=== PATIENT | female | born 1930 | race Caucasian/White ===

== ENCOUNTER 2016-08-16 09:13 | Outpatient (CLI) | payer MEDICARE, BC | END 2016-08-16 09:14 | disposition home or self-care (01) | DX: E11.8 Type 2 diabetes mellitus with unspecified complications (principal); Z79.899 Other long term (current) drug therapy ==

== ENCOUNTER 2016-10-25 08:00 | Outpatient (CLI) | payer MEDICARE, BC | END 2016-10-25 08:01 | disposition home or self-care (01) | DX: E11.9 Type 2 diabetes mellitus without complications (principal); Z79.899 Other long term (current) drug therapy ==

== ENCOUNTER 2017-01-19 08:00 | Outpatient (CLI) | payer MEDICARE, BC ==
[2017-01-19 19:18] LABS: ALBUMIN/GLOBULIN RATIO 1.3 (1.0-2.2); BILIRUBIN,TOTAL 0.4 mg/dL (0.2-1.0); CALCIUM 8.7 mg/dL (8.5-10.3); CREATININE 0.8 mg/dL (0.4-1.0); POTASSIUM 3.8 mmol/L (3.5-5.0); TOTAL PROTEIN 7.2 g/dL (6.7-8.2)
[2017-01-19 19:39] LABS: BASOPHILS # (AUTO) 0.1 10^3/uL (0.0-0.1); BASOPHILS % (AUTO) 0.8 %; EOSINOPHILS # (AUTO) 0.1 10^3/uL (0.0-0.7); EOSINOPHILS % (AUTO) 1.1 %; HCT - HEMATOCRIT 43.8 % (37.0-47.0); HGB - HEMOGLOBIN 14.6 g/dL (12.0-16.0); LYMPHOCYTES % (AUTO) 26.8 %; MEAN CORPUSCULAR HEMOGLOBIN 31.6 pg (27.0-31.0); MEAN CORPUSCULAR HGB CONC 33.3 g/dL (32.0-36.0); MEAN CORPUSCULAR VOLUME 94.9 fL (81.0-99.0); MEAN PLATELET VOLUME 9.3 fL (7.9-10.8); MONOCYTES # (AUTO) 0.5 10^3/uL (0.0-1.0); MONOCYTES % (AUTO) 6.1 %; NEUTROPHILS % (AUTO) 65.2 %; NUCLEATED RED BLOOD CELLS AUTO 0.2 /100WBC; RED BLOOD COUNT 4.62 10^6/uL (4.20-5.40); RED CELL DISTRIBUTION WIDTH 13.3 % (12.0-15.0); UNCORRECTED WHITE BLOOD COUNT 7.6 x10^3/uL; WHITE BLOOD COUNT 7.6 x10^3/uL (4.8-10.8)
[2017-01-19 19:46] LABS: THYROID STIMULATING HORMONE 2.2 uIU/mL (0.34-5.60)
== END 2017-01-19 08:01 | disposition home or self-care (01) ==
LOC: LAB.R 08:00
PROVIDERS: ATTEND Physician Assistant Medical
DX: R41.3 Other amnesia (principal); E03.9 Hypothyroidism, unspecified
CPT/HCPCS: 80053; 82306; 82607; 84443; 85025

== ENCOUNTER 2017-04-06 12:58 | Outpatient (CLI) | payer MEDICARE, BC ==
[2017-04-06 13:12] LABS: BASOPHILS # (AUTO) 0.1 10^3/uL (0.0-0.1); BASOPHILS % (AUTO) 0.9 %; EOSINOPHILS # (AUTO) 0.1 10^3/uL (0.0-0.7); EOSINOPHILS % (AUTO) 1.3 %; HCT - HEMATOCRIT 45.6 % (37.0-47.0); HGB - HEMOGLOBIN 15.2 g/dL (12.0-16.0); LYMPHOCYTES # (AUTO) 2.1 10^3/uL (1.5-3.5); LYMPHOCYTES % (AUTO) 31.2 %; MEAN CORPUSCULAR HEMOGLOBIN 31.1 pg (27.0-31.0); MEAN CORPUSCULAR HGB CONC 33.2 g/dL (32.0-36.0); MEAN CORPUSCULAR VOLUME 93.7 fL (81.0-99.0); MEAN PLATELET VOLUME 9.4 fL (7.9-10.8); MONOCYTES # (AUTO) 0.6 10^3/uL (0.0-1.0); MONOCYTES % (AUTO) 8.5 %; NEUTROPHILS # (AUTO) 3.9 10^3/uL (1.5-6.6); NEUTROPHILS % (AUTO) 58.1 %; NUCLEATED RED BLOOD CELLS AUTO 0.2 /100WBC; RED BLOOD COUNT 4.87 10^6/uL (4.20-5.40); RED CELL DISTRIBUTION WIDTH 13.6 % (12.0-15.0); UNCORRECTED WHITE BLOOD COUNT 6.7 x10^3/uL; WHITE BLOOD COUNT 6.7 x10^3/uL (4.8-10.8)
[2017-04-06 13:30] LABS: ALBUMIN/GLOBULIN RATIO 1.2 (1.0-2.2); BILIRUBIN,TOTAL 0.5 mg/dL (0.2-1.0); BUN - BLOOD UREA NITROGEN 24 mg/dL (6-20); CARBON DIOXIDE - CO2 29 mmol/L (21-32); CHLORIDE 101 mmol/L (101-111); CHOL/HDL RATIO 3.5 (<4.4); CHOLESTEROL 180 mg/dL; CREATININE 0.9 mg/dL (0.4-1.0); GFR - MDRD 60 (>89); GLUCOSE 135 mg/dL (70-100); HDL CHOLESTEROL 52 mg/dL; POTASSIUM 3.8 mmol/L (3.5-5.0); SODIUM 141 mmol/L (135-145); TOTAL PROTEIN 7.6 g/dL (6.7-8.2); TRIGLYCERIDES 121 mg/dL; VLDL CHOLESTEROL 24 mg/dL
[2017-04-06 15:13] LABS: HEMOGLOBIN A1C 0.86 g/dL
== END 2017-04-06 12:59 | disposition home or self-care (01) ==
LOC: LAB.R 12:58
PROVIDERS: ATTEND Physician Assistant Medical
DX: E11.9 Type 2 diabetes mellitus without complications (principal); I10 Essential (primary) hypertension; E78.5 Hyperlipidemia, unspecified; E03.9 Hypothyroidism, unspecified; Z79.899 Other long term (current) drug therapy
CPT/HCPCS: 80053; 80061; 83036; 84443; 85025

== ENCOUNTER 2017-05-05 09:05 | Outpatient (CLI) | payer MEDICARE, BC ==
--- NOTE | 2017-05-05 10:36 | Ultrasound Report ---
ULTRASOUND ANTERIOR ABDOMINAL WALL: 05/05/2017 CLINICAL INDICATION: Epigastric nodule. TECHNIQUE: Real-time scanning was performed with associate financial representative static images obtained. FINDINGS: Ultrasound of the upper abdomen, just left of midline, was performed. Multiple small lipo mas are noted in the subcutaneous fat, with the largest measuring 2.4 x 1.9 x 0.9 cm. No sonographic ally suspicious findings are identified. IMPRESSION: MULTIPLE SMALL LIPOMAS, MEASURING UP TO 2.4 CM IN DIAMETER. JOB #: [id number] EXT JOB #:[id number]
== END 2017-05-05 09:06 | disposition home or self-care (01) ==
LOC: DI 09:05
PROVIDERS: ATTEND Physician Assistant Medical
DX: D17.1 Benign lipomatous neoplasm of skin and subcutaneous tissue of trunk (principal)
CPT/HCPCS: 76705

== ENCOUNTER 2017-07-12 08:00 | Outpatient (CLI) | payer MEDICARE, BC | END 2017-07-12 08:01 | disposition home or self-care (01) | LOC: LAB.R 08:00 | PROVIDERS: ATTEND Physician Assistant Medical | DX: E03.9 Hypothyroidism, unspecified (principal); Z79.899 Other long term (current) drug therapy | CPT/HCPCS: 84443 ==

== ENCOUNTER 2017-08-30 12:44 | Outpatient (CLI) | payer MEDICARE, BC ==
[2017-08-30 13:51] LABS: BASOPHILS # (AUTO) 0.1 10^3/uL (0.0-0.1); BASOPHILS % (AUTO) 1.4 %; EOSINOPHILS % (AUTO) 0.5 %; HGB - HEMOGLOBIN 15.6 g/dL (12.0-16.0); LYMPHOCYTES # (AUTO) 1.5 10^3/uL (1.5-3.5); LYMPHOCYTES % (AUTO) 31.3 %; MEAN CORPUSCULAR HEMOGLOBIN 31.7 pg (27.0-31.0); MEAN CORPUSCULAR HGB CONC 34.6 g/dL (32.0-36.0); MEAN CORPUSCULAR VOLUME 91.7 fL (81.0-99.0); MEAN PLATELET VOLUME 8.8 fL (7.9-10.8); MONOCYTES # (AUTO) 0.6 10^3/uL (0.0-1.0); MONOCYTES % (AUTO) 11.9 %; NEUTROPHILS # (AUTO) 2.7 10^3/uL (1.5-6.6); NEUTROPHILS % (AUTO) 54.9 %; PLT - PLATELET COUNT 121 10^3/uL (130-450); RED CELL DISTRIBUTION WIDTH 13.6 % (12.0-15.0); WHITE BLOOD COUNT 4.8 x10^3/uL (4.8-10.8)
[2017-08-30 14:07] LABS: ALBUMIN/GLOBULIN RATIO 1.2 (1.0-2.2); BILIRUBIN,TOTAL 0.5 mg/dL (0.2-1.0); CALCIUM 8.4 mg/dL (8.5-10.3); CREATININE 0.7 mg/dL (0.4-1.0); TOTAL PROTEIN 7.3 g/dL (6.7-8.2)
[2017-08-30 14:15] LABS: HB2 TOTAL 17.5 g/dL; HEMOGLOBIN A1C 0.98 g/dL; HEMOGLOBIN A1C % 7.3 % (4.6-6.2)
--- NOTE | 2017-08-30 16:07 | XRAY Report ---
TWO VIEW THORACIC SPINE: 08/30/2017 CLINICAL INDICATION: Fall, pain. COMPARISON: 01/28/2016. FINDINGS: Frontal and lateral views of the thoracic spine demonstrate mild degenerative disk disease. There is no evidence of compression fracture. No paraspinal hematoma is seen. IMPRESSION: MILD DEGENERATIVE DISK DISEASE. NO EVIDENCE OF ACUTE COMPRESSION FRACTURE. TD: 08/30/2017 16:06 [facility]
== END 2017-08-30 12:45 | disposition home or self-care (01) ==
LOC: DI 12:44
PROVIDERS: ATTEND Physician Assistant Medical
DX: M51.34 Other intervertebral disc degeneration, thoracic region (principal); R53.1 Weakness; E11.9 Type 2 diabetes mellitus without complications; Z79.899 Other long term (current) drug therapy
CPT/HCPCS: 36415; 72070; 80053; 81001; 81003; 83036; 85025; 87086

== ENCOUNTER 2017-08-30 14:00 | Outpatient (CLI) | payer MEDICARE, BC ==
[2017-08-30 14:45] LABS: BILIRUBIN,URINE NEGATIVE (NEGATIVE); GLUCOSE, URINE (UA) NEGATIVE (NEGATIVE); KETONES,URINE (UA) NEGATIVE (NEGATIVE); LEUKOCYTE ESTERASE, URINE NEGATIVE (NEGATIVE); NITRITE,URINE NEGATIVE (NEGATIVE); OCCULT BLOOD,URINE NEGATIVE (NEGATIVE); PROTEIN,URINE NEGATIVE (NEGATIVE); UROBILINOGEN,URINE 0.2 (NORMAL) E.U./dL (NORMAL)
[2017-08-30 14:49] LABS: CLARITY,URINE CLEAR (CLEAR)
== END 2017-08-30 14:01 | disposition home or self-care (01) ==
LOC: LAB.R 14:00
PROVIDERS: ATTEND Physician Assistant Medical
DX: R53.1 Weakness (principal)
CPT/HCPCS: 81001; 81003; 87086

== ENCOUNTER 2017-11-02 09:22 | Outpatient (CLI) | payer MEDICARE, BC ==
[2017-11-02 13:20] LABS: BILIRUBIN,URINE NEGATIVE (NEGATIVE); GLUCOSE, URINE (UA) NEGATIVE (NEGATIVE); KETONES,URINE (UA) NEGATIVE (NEGATIVE); LEUKOCYTE ESTERASE, URINE NEGATIVE (NEGATIVE); NITRITE,URINE NEGATIVE (NEGATIVE); OCCULT BLOOD,URINE NEGATIVE (NEGATIVE); PH,URINE 5.5 PH (5.0-7.5); PROTEIN,URINE NEGATIVE (NEGATIVE); UROBILINOGEN,URINE 0.2 (NORMAL) E.U./dL (NORMAL)
[2017-11-02 13:23] LABS: CLARITY,URINE CLOUDY (CLEAR)
[2017-11-02 14:02] LABS: BACTERIA,URINE Few /HPF (None Seen); RBC,URINE 0-5 /HPF (0-5); SQUAMOUS EPITHELIAL CELL,UR MOD Squamous (<= Few)
[2017-11-02 14:03] LABS: AMORPHOUS SEDIMENT,UR Marked /LPF
[2017-11-02 14:04] LABS: CRYSTALS,URINE 6-10 Calcium Oxalate /LPF; MUCUS,URINE Few Strands
== END 2017-11-02 09:23 | disposition home or self-care (01) ==
LOC: LAB.R 09:22
PROVIDERS: ATTEND Physician Assistant Medical
DX: R32 Unspecified urinary incontinence (principal)
CPT/HCPCS: 81001; 81003; 87086

== ENCOUNTER 2017-11-18 12:32 | Outpatient (CLI) | payer MEDICARE, BC ==
[~2017-11-18 12:32] MED LIST: GADOBUTROL 7.5 MMOL/7.5 ML VIAL ONE
--- NOTE | 2017-11-18 14:45 | MRI Report ---
EXAM: MRI BRAIN WITHOUT AND WITH CONTRAST EXAM DATE: 11/18/2017 01:33 PM. CLINICAL HISTORY: Vertigo, dizziness, memory loss, unsteadiness and hearing loss. COMPARISON: None. TECHNIQUE: Multiplanar, multisequence T1-weighted and fluid-sensitive MR sequences of the brain were performed. Sequences optimized for routine and IAC evaluation. Other: None. IV Contrast: 7.5 mL Gadav ist. FINDINGS: Brain Volume: Mild diffuse atrophy. Parenchyma: No acute hemorrhage or stroke. Mild cerebral white matter T2 hyperintense signal changes, likely from aging and mild chronic small vessel ischemic white matter disease. There is a small somewhat plaque-like focus of enhancement over the upper right frontal lobe convexit y measuring about 10 x 3 mm. This is too small to further characterize accurately. No brain impingeme nt. This may be a small meningioma. No other intracranial abnormal masslike enhancement. Ventricles/Cisterns: No hydrocephalus. No abnormal extra-axial fluid collection or hemorrhage. Orbits: Symmetric and unremarkable. Sella Turcica: The pituitary gland, cavernous sinuses, suprasellar cistern and optic chiasm are unrem arkable. IAC: Prior lens extraction on the left. Vasculature: Normal signal flow void is seen in the major arterial structures at the skull base. The dural sinuses are patent and enhance normally. Sinuses: No acute sinus disease. Bones: No focal pathologic appearing marrow signal changes. Other: None. IMPRESSION: 1. 3 x 10 mm plaque-like focus of enhancement over the right frontal convexity consistent with an ext ra-axial dural-based lesion such as very small meningioma. 2. No acute intracranial abnormality or other evidence for enhancing mass. 3. Unremarkable findings in the regions of the internal auditory canals and cerebellopontine angle ci sterns. 4. Mild generalized volume loss and white matter signal changes likely from aging and mild chronic mi croangiopathy. [facility] Referring Provider Line: [phone] SITE ID: [id number]
== END 2017-11-18 12:33 | disposition home or self-care (01) ==
LOC: DI 12:32
PROVIDERS: ATTEND Physician Assistant Medical
DX: R90.89 Other abnormal findings on diagnostic imaging of central nervous system (principal)
CPT/HCPCS: 70543; 70553; A9585

== ENCOUNTER 2018-01-17 09:29 | Outpatient (CLI) | payer MEDICARE, BC ==
[2018-01-17] MEDS ORDERED: GADOBUTROL 7.5 MMOL/7.5 ML VIAL ONE (10:51)
[2018-01-17] MEDS ORDERED: GADOBUTROL 7.5 MMOL/7.5 ML VIAL IVP ONE (11:26)
--- NOTE | 2018-01-18 12:05 | MRI Report ---
Procedure Date: 01/17/2018 Accession Number: [id number] / [id number] Procedure: MRI - Cervical Spine W/WO CPT Code: FULL RESULT: EXAM: MRI CERVICAL SPINE WITHOUT AND WITH CONTRAST EXAM DATE: 01/17/2018 11:21 AM. CLINICAL HISTORY: Neck mass. Fall hitting back of head. No masses felt. COMPARISON: Report of MRI of the cervical spine 05/09/2015 (the images will not load). TECHNIQUE: Multiplanar, multisequence T1-weighted and fluid-sensitive sequences of the cervical spine before and after administration of intravenous contrast. Other: None. IV contrast: 7.5 mL Gadavist. FINDINGS: Alignment: Minimal, 1.5 mm, spondylolisthesis is seen at C7-T1 and T1-T2. Neurologic Structures: The visualized posterior fossa structures are unremarkable. No signal abnormality in the visualized spinal cord. No abnormal enhancement. Bone Marrow: No gross fractures or bone lesions. No marrow edema or abnormal enhancement. Interspace Levels/Facets: C1-C2: Unremarkable on sagittal series. C2-C3: Unremarkable. C3-C4: Moderate right-sided degenerative facet changes seen. Minimal central dorsal disk bulge. No stenosis. C4-C5: Mild left-sided degenerative facet change is seen. Central dorsal subligamentous disk protrusion is seen. Anterior concavity to the ventral thecal sac and spinal cord is noted. Mild central canal narrowing is seen without canal stenosis. Mild effacement of exiting left C5 nerve root is seen with mild foraminal stenosis. C5-C6: Moderate right-sided degenerative facet change is seen. Mild circumferential disk bulge is seen. Asymmetric left foraminal and left lateral disk bulge is seen. Lobular effacement of the thecal sac is noted without significant canal narrowing. Mild effacement of exiting left C6 nerve root is seen with mild foraminal stenosis. C6-C7: Mild loss of disk space height is seen. Minimal lateral and ventral bulge of disk/osteophyte complex is seen. Minimal degenerative uncovertebral change is seen, greater on the left. Mild effacement of exiting C7 nerve roots is noted. Mild left foraminal stenosis. C7-T1: Left-sided degenerative facet change is seen. Minimal spondylolisthesis is present. Lobular dorsal subligamentous disk protrusion is seen. Lateral and ventral disk bulge is noted. Asymmetric right lateral disk bulge is seen. Mild effacement of the thecal sac is seen. Mild central canal narrowing is noted without stenosis. Effacement of exiting right C8 nerve root is seen with mild foraminal stenosis. T1-T2: Lobular nonenhancing cyst is seen filling and expanding the right foramen and extending into subpleural location medially in the right lung apex. This measures up to 20 x 23 mm (AP by RL) in diameter. Smaller nerve root sleeve cyst is seen in the left foramen as well. This measures up to 6 x 11 mm. No abnormal enhancement is seen. The spinal canal is unremarkable. Spinal Canal: No enhancing lesions within the spinal canal. No epidural abscess. Musculature: Normal. No edema, enhancement, or fatty atrophy. Other: The paravertebral and prevertebral soft tissues are normal. Note the left internal jugular vein is dominant. 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 IMPRESSION: 1. Normal appearance to the cervical spinal cord. No intrinsic signal abnormality or abnormal enhancement. 2. Mild spondylosis in the mid and lower cervical spine. Minimal spondylolisthesis is seen at C7-T1. -C4-C5: Mild canal narrowing. Left mild foraminal stenosis. -C5-C6: Left mild foraminal stenosis. -C6-C7: Left mild foraminal stenosis. -C7-T1: Mild canal narrowing. Right mild foraminal stenosis. 3. T1-T2: Minimal spondylolisthesis. Bilateral nerve root sleeve cysts are seen. This is larger on the right extending into subpleural location at the medial right lung apex. [facility]
== END 2018-01-17 09:30 | disposition home or self-care (01) ==
LOC: LAB 09:29
PROVIDERS: ATTEND Psychiatry & Neurology Neurology
DX: M47.893 Other spondylosis, cervicothoracic region (principal); M48.02 Spinal stenosis, cervical region; M48.03 Spinal stenosis, cervicothoracic region; M43.14 Spondylolisthesis, thoracic region
CPT/HCPCS: 72156; A9585

== ENCOUNTER 2018-02-22 15:30 | Outpatient (CLI) | payer MEDICARE, BC ==
[2018-02-22 17:28] LABS: HB2 TOTAL 16.3 g/dL; HEMOGLOBIN A1C 0.84 g/dL; HEMOGLOBIN A1C % 6.9 % (4.6-6.2)
== END 2018-02-22 15:31 | disposition home or self-care (01) ==
LOC: LAB.R 15:30
PROVIDERS: ATTEND Physician Assistant Medical
DX: E11.8 Type 2 diabetes mellitus with unspecified complications (principal); Z79.899 Other long term (current) drug therapy
CPT/HCPCS: 82947; 83036

== ENCOUNTER 2018-08-23 08:00 | Outpatient (CLI) | payer MEDICARE, BC ==
[2018-08-23 14:15] LABS: BASOPHILS # (AUTO) 0.1 10^3/uL (0.0-0.1); EOSINOPHILS # (AUTO) 0.1 10^3/uL (0.0-0.7); HGB - HEMOGLOBIN 14.7 g/dL (12.0-16.0); LYMPHOCYTES # (AUTO) 1.9 10^3/uL (1.5-3.5); LYMPHOCYTES % (AUTO) 29.1 %; MEAN CORPUSCULAR HEMOGLOBIN 32.6 pg (27.0-31.0); MEAN CORPUSCULAR HGB CONC 34.5 g/dL (32.0-36.0); MEAN CORPUSCULAR VOLUME 94.4 fL (81.0-99.0); MEAN PLATELET VOLUME 9.8 fL (7.9-10.8); MONOCYTES # (AUTO) 0.6 10^3/uL (0.0-1.0); MONOCYTES % (AUTO) 8.5 %; NEUTROPHILS % (AUTO) 60.4 %; PLT - PLATELET COUNT 191 10^3/uL (130-450); RED BLOOD COUNT 4.51 10^6/uL (4.20-5.40); RED CELL DISTRIBUTION WIDTH 13.1 % (12.0-15.0); WHITE BLOOD COUNT 6.7 x10^3/uL (4.8-10.8)
[2018-08-23 14:20] LABS: ALBUMIN 3.8 g/dL (3.2-5.5); ALBUMIN/GLOBULIN RATIO 1.1 (1.0-2.2); ALKALINE PHOSPHATASE 47 IU/L (42-121); ALT ALANINE AMINOTRANSFERASE < 10 IU/L (10-60); AST ASPARTATE AMINOTRANSFERASE 15 IU/L (10-42); BILIRUBIN,TOTAL 0.7 mg/dL (0.2-1.0); BUN - BLOOD UREA NITROGEN 19 mg/dL (6-20); CALCIUM 9.1 mg/dL (8.5-10.3); CARBON DIOXIDE - CO2 30 mmol/L (21-32); CHLORIDE 100 mmol/L (101-111); CREATININE 0.7 mg/dL (0.4-1.0); GFR - MDRD 79 (>89); GLUCOSE 105 mg/dL (70-100); SODIUM 140 mmol/L (135-145); TOTAL PROTEIN 7.2 g/dL (6.7-8.2)
[2018-08-23 15:03] LABS: HB2 TOTAL 16.3 g/dL; HEMOGLOBIN A1C 0.84 g/dL; HEMOGLOBIN A1C % 6.9 % (4.6-6.2)
== END 2018-08-23 23:59 | disposition home or self-care (01) ==
LOC: LAB.R 08:00
PROVIDERS: ATTEND Physician Assistant Medical
DX: Z79.899 Other long term (current) drug therapy (principal); E03.9 Hypothyroidism, unspecified; E11.9 Type 2 diabetes mellitus without complications
CPT/HCPCS: 80053; 83036; 85025

== ENCOUNTER 2018-10-04 12:31 | Outpatient (CLI) | payer MEDICARE, BC ==
[2018-10-04 12:59] LABS: HGB - HEMOGLOBIN 14.9 g/dL (12.0-16.0); MEAN CORPUSCULAR HEMOGLOBIN 31.3 pg (27.0-31.0); MEAN CORPUSCULAR HGB CONC 33.7 g/dL (32.0-36.0); MEAN CORPUSCULAR VOLUME 92.8 fL (81.0-99.0); MEAN PLATELET VOLUME 8.9 fL (7.9-10.8); RED BLOOD COUNT 4.77 10^6/uL (4.20-5.40); RED CELL DISTRIBUTION WIDTH 12.9 % (12.0-15.0); WHITE BLOOD COUNT 6.9 x10^3/uL (4.8-10.8)
[2018-10-04 13:39] LABS: CALCIUM 8.8 mg/dL (8.5-10.3); CREATININE 0.8 mg/dL (0.4-1.0)
[2018-10-04 13:44] LABS: THYROID STIMULATING HORMONE 4.51 uIU/mL (0.34-5.60)
[2018-10-04 13:46] LABS: FREE T4 (FREE THYROXINE) 0.95 ng/dL (0.58-1.64)
--- NOTE | 2018-10-04 14:48 | XRAY Report ---
Reason: HYPOTENSION DUE TO DRUGS,WEAKNESS,HYPOTHYROIDISM,D Procedure Date: 10/04/2018 Accession Number: [id number] / [id number] Procedure: XR - Chest 2 View X-Ray CPT Code: 14262 FULL RESULT: EXAM: CHEST RADIOGRAPHY EXAM DATE: 10/04/2018 01:13 PM. CLINICAL HISTORY: Hypotension due to drugs, weakness, hypothyroidism. COMPARISON: XR CHEST 1 VIEWS 05/12/2012 8:29 PM. TECHNIQUE: 2 views. FINDINGS: Lungs/Pleura: No focal opacities evident. No pleural effusion. No pneumothorax. Normal volumes. Mediastinum: Stable cardiomediastinal silhouette with tortuous calcified aorta. Other: None. IMPRESSION: No acute cardiopulmonary abnormality is detected. [facility]
== END 2018-10-04 12:32 | disposition home or self-care (01) ==
LOC: LAB 12:31
PROVIDERS: ATTEND Family Medicine
DX: R53.1 Weakness (principal); I95.2 Hypotension due to drugs; E03.9 Hypothyroidism, unspecified; E11.9 Type 2 diabetes mellitus without complications; I10 Essential (primary) hypertension; R26.81 Unsteadiness on feet; M15.9 Polyosteoarthritis, unspecified; R06.02 Shortness of breath
CPT/HCPCS: 36415; 71046; 80048; 83880; 84439; 84443; 84481; 85027

== ENCOUNTER 2018-10-06 10:02 | Outpatient (CLI) | payer MEDICARE, BC | END 2018-10-06 10:03 | disposition EMS.NT | LOC: EMS 10:02 | PROVIDERS: ATTEND Surgery | DX: Z03.89 Encounter for observation for other suspected diseases and conditions ruled out (principal) ==

== ENCOUNTER 2018-10-09 11:21 | Emergency (ER) | payer MEDICARE, BC ==
[2018-10-09] MEDS ORDERED: SODIUM CHLORIDE 0.9% 1,000 ML IV ONE (12:37)
--- NOTE | 2018-10-09 12:42 | ED Physician Documentation ---
PD HPI HEAD INJURY - Stated complaint Stated Complaint: GLF/BUMP ON HEAD - Chief complaint Chief Complaint: Trauma Hd/Nk - History obtained from History obtained from: Patient - History of Present Illness Mechanism of head injury: Fell Where head injury occurred: Home Timing - onset: How many days ago (4) Location of injury: Back Quality of pain: Pain Associated symptoms: LOC. No: AMS, Amnesia, Nausea / vomiting, Neck pain, Paresthesias, Seizures, Ear drainage, Nasal drainage Symptoms improve with: Rest Symptoms worsen with: Palpation, Movement Contributing factors: No: Anticoagulated Similar symptoms before: Diagnosis (concussion) Recently seen: Not recently seen - Additional information Additional information: 88-year-old female who was in her usual state of health when she had some blueberries 4 days ago and got up to go to the bathroom and collapsed in her home. She fell hit the back of her head and she really did not remember that she had hit her head or even fallen. Her neighbor came over to get her the following morning and she was still asleep in bed. Neighbor called the ambulance medics came out to her house and evaluated her and after checking her over she appeared well. At that time the patient did not recall the injury to her head. She continues to have some pain and headache and she is come now to the emergency department for evaluation of the head injury and syncope. She has not had syncope previously. Review of Systems Constitutional: denies: Fever Eyes: denies: Decreased vision Ears: denies: Ear pain Nose: denies: Rhinorrhea / runny nose, Congestion Throat: denies: Sore throat Cardiac: denies: Chest pain / pressure, Palpitations Respiratory: denies: Dyspnea, Cough GI: denies: Abdominal Pain, Nausea, Vomiting, Constipation, Diarrhea : denies: Dysuria, Frequency Skin: denies: Rash Musculoskeletal: denies: Neck pain, Back pain, Extremity pain Neurologic: reports: Syncope, Headache, Head injury, LOC. 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: Hysterectomy HEENT: Cataracts - Present Medications Home Medications: Ambulatory Orders Medication Instructions Recorded Confirmed Glipizide [Glipizide ER] 2.5 mg PO DAILY 11/21/12 10/09/18 Levothyroxine Sodium [Synthroid] 100 mcg PO DAILY 11/21/12 10/09/18 Losartan [Cozaar] 50 mg PO DAILY 11/21/12 10/09/18 Aspirin [Aspir 81] 81 mg ORAL DAILY 04/08/14 10/09/18 Melatonin/Pyridoxine [Melatonin 3 3 mg ORAL ACHS 04/08/14 10/09/18 mg Tablet] Sulfamethoxazole/Trimethoprim 1 each PO BID #14 tablet 10/09/18 [Sulfamethoxazole-Tmp Ds Tablet] - Allergies Allergies/Adverse Reactions: Allergies Allergy/AdvReac Type Severity Reaction Status Date / Time No Known Drug Allergies Allergy Verified 10/09/18 11:38 - Social History Does the pt smoke?: No Smoking Status: Never smoker Does the pt drink ETOH?: No Does the pt have substance abuse?: No - Immunizations Immunizations: TDAP >10years/unknown PD ED PE NORMAL - Vitals Vital signs reviewed: Yes (hypertensive systolic ) - General General: Alert and oriented X 3, No acute distress, Well developed/nourished - HEENT HEENT: PERRL, EOMI, Other (There is a small scar to the occiput with mild tenderness surrounding this. There is no tenderness to the cervical vertebrae or the paraspinous muscles and the ROM is not restricted. ) - Neck Neck: Supple, no meningeal sign, No bony TTP - Cardiac Cardiac: RRR, No murmur - Respiratory Respiratory: No respiratory distress, Clear bilaterally - Abdomen Abdomen: Soft, Non tender - Back Back: No CVA TTP, No spinal TTP - Derm Derm: Normal color, Warm and dry, No rash - Extremities Extremities: No deformity, No edema - Neuro Neuro: Alert and oriented X 3, water filter cleaner 2-12 intact, No motor deficit, No sensory deficit, Normal speech Eye Opening: Spontaneous Motor: Obeys Commands Verbal: Oriented GCS Score: 15 - Psych Psych: Normal mood, Normal affect Results - Vitals Vitals: Vital Signs - 24 hr 10/09/18 10/09/18 10/09/18 11:27 11:30 13:10 Temperature 36.9 C 36.9 C Heart Rate 80 80 73 Respiratory 16 18 18 Rate Blood Pressure 154/69 H 154/69 H 135/75 H O2 Saturation 98 97 95 Oxygen O2 Source Room air - EKG (time done) 1251 Rate: Rate (enter#) (72) Rhythm: NSR Ischemia: Q waves Compare to prior EKG: Old EKG unavailable Computer interpretation: Agree with computer - Labs Labs: Laboratory Tests 10/09/18 10/09/18 10/09/18 13:01 13:01 13:01 WBC 6.6 RBC 4.63 Hgb 14.7 Hct 43.3 MCV 93.5 MCH 31.8 H MCHC 34.0 RDW 13.1 Plt Count 199 MPV 8.9 Neut # (Auto) 4.0 Lymph # (Auto) 2.0 [place] # (Auto) 0.5 Eos # (Auto) 0.1 Baso # (Auto) 0.1 Absolute Nucleated RBC 0.00 Nucleated RBC % 0.0 Sodium 137 Potassium 4.1 Chloride 101 Carbon Dioxide 27 Anion Gap 9.0 BUN 20 Creatinine 0.8 Estimated GFR (MDRD) 68 L Glucose 132 H Lactic Acid Calcium 9.0 Total Bilirubin 0.7 AST 23 ALT 10 Alkaline Phosphatase 41 L Troponin I < 0.04 Total Protein 7.4 Albumin 3.9 Globulin 3.5 Albumin/Globulin Ratio 1.1 Lipase 38 Urine Color Urine Clarity Urine pH Ur Specific [place] Urine Protein Urine Glucose (UA) Urine Ketones Urine Occult Blood Urine Nitrite Urine Bilirubin Urine Urobilinogen Ur Leukocyte Esterase Urine RBC Urine WBC Ur Squamous Epith Cells Urine Bacteria Ur Microscopic Review Urine Culture Comments 10/09/18 10/09/18 13:01 13:08 WBC RBC Hgb Hct MCV MCH MCHC RDW Plt Count MPV Neut # (Auto) Lymph # (Auto) [place] # (Auto) Eos # (Auto) Baso # (Auto) Absolute Nucleated RBC Nucleated RBC % Sodium Potassium Chloride Carbon Dioxide Anion Gap BUN Creatinine Estimated GFR (MDRD) Glucose Lactic Acid 1.0 Calcium Total Bilirubin AST ALT Alkaline Phosphatase Troponin I Total Protein Albumin Globulin Albumin/Globulin Ratio Lipase Urine Color YELLOW Urine Clarity CLOUDY Urine pH 5.5 Ur Specific [place] >=1.030 H Urine Protein NEGATIVE Urine Glucose (UA) NEGATIVE Urine Ketones NEGATIVE Urine Occult Blood NEGATIVE Urine Nitrite NEGATIVE Urine Bilirubin NEGATIVE Urine Urobilinogen 0.2 (NORMAL) Ur Leukocyte Esterase TRACE H Urine RBC None Seen Urine WBC 11-25 H Ur Squamous Epith Cells MANY Squamous H Urine Bacteria Moderate H Ur Microscopic Review INDICATED Urine Culture Comments NOT INDICATED - Rads (name of study) CT head without Radiology: Prelim report reviewed (Impression: No intracranial hemorrhage or skull fracture.), EMP read indepedently, See rad report Procedures - IVC sono (time) 1230 Bedside IVC sono: IVC measures (cm) (1.02), IVC collapsed c insp (cm) (complete), Dehydration (est 1-2 liter deficit) PD MEDICAL DECISION MAKING - ED course Complexity details: reviewed results, re-evaluated patient, considered differential, d/w patient ED course: 88 y/o female with a syncopal episode 4 days ago has UTI on evaluation in addition to dehydration. She is given IV saline and rocephin. Departure - Departure Disposition: 01 Home, Self Care Clinical Impression: Dehydration Concussion Qualifiers: Encounter type: initial encounter Loss of consciousness presence/duration: with LOC of 30 min or less Qualified Code(s): S06.0X1A - Concussion with loss of consciousness of 30 minutes or less, initial encounter UTI (urinary tract infection) Qualifiers: Urinary tract infection type: acute cystitis Hematuria presence: without hematuria Qualified Code(s): N30.00 - Acute cystitis without hematuria Instructions: ED Concussion, ED Dehydration, ED UTI Cystitis Female Follow-Up: Stewart Herron MD [Primary Care Provider] - Prescriptions: Sulfamethoxazole/Trimethoprim [Sulfamethoxazole-Tmp Ds Tablet] 1 each PO BID #14 tablet
[2018-10-09 13:10] VITALS: BP 135/75
[2018-10-09 13:16] LABS: BASOPHILS # (AUTO) 0.1 10^3/uL (0.0-0.1); EOSINOPHILS # (AUTO) 0.1 10^3/uL (0.0-0.7); EOSINOPHILS % (AUTO) 1.3 %; HGB - HEMOGLOBIN 14.7 g/dL (12.0-16.0); LYMPHOCYTES % (AUTO) 29.4 %; MEAN CORPUSCULAR HEMOGLOBIN 31.8 pg (27.0-31.0); MEAN CORPUSCULAR VOLUME 93.5 fL (81.0-99.0); MEAN PLATELET VOLUME 8.9 fL (7.9-10.8); MONOCYTES # (AUTO) 0.5 10^3/uL (0.0-1.0); MONOCYTES % (AUTO) 7.9 %; NEUTROPHILS % (AUTO) 60.4 %; PLT - PLATELET COUNT 199 10^3/uL (130-450); RED BLOOD COUNT 4.63 10^6/uL (4.20-5.40); RED CELL DISTRIBUTION WIDTH 13.1 % (12.0-15.0); WHITE BLOOD COUNT 6.6 x10^3/uL (4.8-10.8)
[2018-10-09 13:22] LABS: BILIRUBIN,URINE NEGATIVE (NEGATIVE); GLUCOSE, URINE (UA) NEGATIVE (NEGATIVE); KETONES,URINE (UA) NEGATIVE (NEGATIVE); LEUKOCYTE ESTERASE, URINE TRACE (NEGATIVE); NITRITE,URINE NEGATIVE (NEGATIVE); OCCULT BLOOD,URINE NEGATIVE (NEGATIVE); PH,URINE 5.5 PH (5.0-7.5); PROTEIN,URINE NEGATIVE (NEGATIVE); UROBILINOGEN,URINE 0.2 (NORMAL) E.U./dL (NORMAL)
[2018-10-09 13:28] LABS: BACTERIA,URINE Moderate /HPF (None Seen); CLARITY,URINE CLOUDY (CLEAR); RBC,URINE None Seen /HPF (0-5); SQUAMOUS EPITHELIAL CELL,UR MANY Squamous (<= Few)
[2018-10-09 13:33] LABS: ALBUMIN 3.9 g/dL (3.2-5.5); ALBUMIN/GLOBULIN RATIO 1.1 (1.0-2.2); BILIRUBIN,TOTAL 0.7 mg/dL (0.2-1.0); CREATININE 0.8 mg/dL (0.4-1.0); TOTAL PROTEIN 7.4 g/dL (6.7-8.2)
--- NOTE | 2018-10-09 13:42 | CT Report ---
Reason: fall occipital contusion headache Procedure Date: 10/09/2018 Accession Number: [id number] / [id number] Procedure: CT - HEAD WO CPT Code: FULL RESULT: EXAM: CT HEAD EXAM DATE: 10/09/2018 01:25 PM. CLINICAL HISTORY: Fall occipital contusion headache. COMPARISON: HEAD W/O 01/28/2016 5:24 PM. TECHNIQUE: Multiaxial CT images were obtained from the foramen magnum to the vertex. Reformats: Sagittal and coronal. IV contrast: None. In accordance with CT protocol optimization, one or more of the following dose reduction techniques were utilized for this exam: automated exposure control, adjustment of mA and/or KV based on patient size, or use of iterative reconstructive technique. FINDINGS: Parenchyma: No intraparenchymal hemorrhage. No evidence of mass, midline shift, or CT findings of infarction. Wilkes-white differentiation is distinct. Extraaxial Spaces: Normal for age. No subdural or epidural collections identified. Ventricles: Normal in size and position. Sinuses and Orbits: Imaged paranasal sinuses, orbits, and mastoids show no significant abnormality. Bones: No fracture. 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 Other: Prior left cataract surgery. No scalp contusion is identified. IMPRESSION: No intracranial hemorrhage or skull fracture. [facility]
[2018-10-09] MEDS ORDERED: cefTRIAXone 1 GM in SODIUM CHLORIDE 0.9% MINIBAG 100 ML IV STA (13:44)
== END 2018-10-09 14:47 | disposition home or self-care (01) ==
LOC: ED 11:21
DX: E86.0 Dehydration (principal); S06.0X1A Concussion with loss of consciousness of 30 minutes or less, initial encounter; W18.30XA Fall on same level, unspecified, initial encounter; W22.8XXA Striking against or struck by other objects, initial encounter; Y92.009 Unspecified place in unspecified non-institutional (private) residence as the place of occurrence of the external cause; N30.00 Acute cystitis without hematuria; I10 Essential (primary) hypertension; E03.9 Hypothyroidism, unspecified; E11.9 Type 2 diabetes mellitus without complications; Z79.82 Long term (current) use of aspirin
CPT/HCPCS: 36415; 70450; 80053; 81001; 81003; 83605; 83690; 84484; 85025; 87086; 93005; 96365; 99284

== ENCOUNTER 2019-01-24 | Outpatient (CLI) | payer MEDICARE, BC | END 2019-01-24 10:51 | disposition home or self-care (01) | DX: M19.012 Primary osteoarthritis, left shoulder (principal) ==

== ENCOUNTER 2019-02-01 14:17 | Outpatient (CLI) | payer MEDICARE, BC ==
[2019-02-01 14:33] LABS: BASOPHILS # (AUTO) 0.1 10^3/uL (0.0-0.1); BASOPHILS % (AUTO) 0.9 %; EOSINOPHILS # (AUTO) 0.1 10^3/uL (0.0-0.7); EOSINOPHILS % (AUTO) 1.1 %; HGB - HEMOGLOBIN 14.3 g/dL (12.0-16.0); LYMPHOCYTES # (AUTO) 2.3 10^3/uL (1.5-3.5); LYMPHOCYTES % (AUTO) 28.5 %; MEAN CORPUSCULAR HEMOGLOBIN 31.8 pg (27.0-31.0); MEAN CORPUSCULAR HGB CONC 33.3 g/dL (32.0-36.0); MEAN CORPUSCULAR VOLUME 95.8 fL (81.0-99.0); MEAN PLATELET VOLUME 10.9 fL (7.9-10.8); MONOCYTES # (AUTO) 0.6 10^3/uL (0.0-1.0); MONOCYTES % (AUTO) 7.8 %; NEUTROPHILS % (AUTO) 61.3 %; PLT - PLATELET COUNT 202 10^3/uL (130-450); RED BLOOD COUNT 4.49 10^6/uL (4.20-5.40); RED CELL DISTRIBUTION WIDTH 13.2 % (12.0-15.0); WHITE BLOOD COUNT 8.1 x10^3/uL (4.8-10.8)
[2019-02-01 14:41] LABS: CALCIUM 9.1 mg/dL (8.5-10.3)
[2019-02-01 15:00] LABS: HEMOGLOBIN A1C 0.75 g/dL
[2019-02-01 15:34] LABS: HB2 TOTAL 15.2 g/dL; HEMOGLOBIN A1C % 6.7 % (4.6-6.2)
== END 2019-02-01 14:18 | disposition home or self-care (01) ==
LOC: LAB 14:17
PROVIDERS: ATTEND Family Medicine
DX: I10 Essential (primary) hypertension (principal); E11.9 Type 2 diabetes mellitus without complications; R29.6 Repeated falls
CPT/HCPCS: 36415; 80048; 83036; 85025

== ENCOUNTER 2020-01-08 10:08 | Outpatient (CLI) | payer MEDICARE, BC ==
[2020-01-08 12:04] LABS: BASOPHILS # (AUTO) 0.1 10^3/uL (0.0-0.1); BASOPHILS % (AUTO) 0.8 %; EOSINOPHILS # (AUTO) 0.1 10^3/uL (0.0-0.7); EOSINOPHILS % (AUTO) 1.8 %; HGB - HEMOGLOBIN 13.5 g/dL (12.0-16.0); LYMPHOCYTES # (AUTO) 1.6 10^3/uL (1.5-3.5); LYMPHOCYTES % (AUTO) 21.9 %; MEAN CORPUSCULAR HEMOGLOBIN 32.1 pg (27.0-31.0); MEAN CORPUSCULAR HGB CONC 32.1 g/dL (32.0-36.0); MEAN CORPUSCULAR VOLUME 100.2 fL (81.0-99.0); MEAN PLATELET VOLUME 12.1 fL (7.9-10.8); MONOCYTES # (AUTO) 0.5 10^3/uL (0.0-1.0); MONOCYTES % (AUTO) 7.5 %; NEUTROPHILS # (AUTO) 4.9 10^3/uL (1.5-6.6); NEUTROPHILS % (AUTO) 67.9 %; PLT - PLATELET COUNT 175 10^3/uL (130-450); RED CELL DISTRIBUTION WIDTH 13.8 % (12.0-15.0); WHITE BLOOD COUNT 7.2 x10^3/uL (4.8-10.8)
[2020-01-08 12:25] LABS: ALBUMIN 3.8 g/dL (3.2-5.5); ALBUMIN/GLOBULIN RATIO 1.1 (1.0-2.2); BILIRUBIN,TOTAL 0.4 mg/dL (0.2-1.0); CREATININE 0.9 mg/dL (0.4-1.0); TOTAL PROTEIN 7.3 g/dL (6.7-8.2)
[2020-01-08 12:46] LABS: HB2 TOTAL 14.2 g/dL; HEMOGLOBIN A1C 0.73 g/dL; HEMOGLOBIN A1C % 6.9 % (4.6-6.2)
== END 2020-01-08 23:59 | disposition home or self-care (01) ==
LOC: LAB.WCP 10:08
PROVIDERS: ATTEND Family Medicine
DX: R29.6 Repeated falls (principal); I50.9 Heart failure, unspecified; M15.9 Polyosteoarthritis, unspecified; E11.9 Type 2 diabetes mellitus without complications; I11.0 Hypertensive heart disease with heart failure
CPT/HCPCS: 36415; 80053; 83036; 84443; 85025

== ENCOUNTER 2020-02-07 09:30 | Outpatient (CLI) | payer MEDICARE, BC ==
[2020-02-07 12:06] LABS: THYROID STIMULATING HORMONE 3.36 uIU/mL (0.34-5.60)
[2020-02-07 12:08] LABS: FREE T3 2.63 pg/mL (2.5-3.9); FREE T4 (FREE THYROXINE) 1.31 ng/dL (0.58-1.64)
== END 2020-02-07 23:59 | disposition home or self-care (01) ==
LOC: LAB.WCP 09:30
PROVIDERS: ATTEND Family Medicine
DX: E03.9 Hypothyroidism, unspecified (principal)
CPT/HCPCS: 36415; 84439; 84443; 84481

== ENCOUNTER 2020-06-12 09:58 | Emergency (ER) | payer MEDICARE, BC ==
--- NOTE | 2020-06-12 10:18 | ED Physician Documentation ---
PD HPI Fall - Stated complaint Stated Complaint: R SIDE PX - Chief complaint Chief Complaint: Ext Problem - History obtained from History obtained from: Patient - History of Present Illness Mechanism of injury: Lost balance Fall distance: Standing position Where injury occurred: Home Timing - onset: How many days ago (16), Other (also fell 5 days ago and touched right upper arm on radiator, with eliptical shape of blistering burn.) Injury(ies) location: Back, Right Lower Extremity (posterior hip) Quality of pain: Pain, Aching Associated symptoms: Weakness (having pain and weakness for lifting right leg at hip. Having to lift leg with hands to sit in car/etc.). No: LOC, AMS, Paresthesias Worsens with: Movement. No: Palpation Contributing factors: No: Anticoagulated Similar symptoms before: Has not had sx before Recently seen: Clinic (seen by PCP and told to take Tylenol and is getting PT. No imaging done.) Review of Systems Constitutional: denies: Fever Nose: denies: Rhinorrhea / runny nose, Congestion Throat: denies: Sore throat Respiratory: denies: Cough Neurologic: reports: Focal weakness (having weakness to lift right leg up (flex at hip), but rst of lower leg movement is okay.). 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 06/12/20 Nortriptyline [Pamelor] 20 mg QPM 06/12/20 06/12/20 - Allergies Allergies/Adverse Reactions: Allergies Allergy/AdvReac Type Severity Reaction Status Date / Time No Known Drug Allergies Allergy Verified 06/12/20 10:15 - Social History Does the pt smoke?: No Smoking Status: Never smoker Does the pt drink ETOH?: No Does the pt have substance abuse?: No - Immunizations Immunizations: TDAP >10years/unknown PD ED PE NORMAL - Vitals Vital signs reviewed: Yes - General General: Alert and oriented X 3, No acute distress, Well developed/nourished - HEENT HEENT: Atraumatic, PERRL, EOMI - Neck Neck: Supple, no meningeal sign, No bony TTP, No adenopathy - Cardiac Cardiac: RRR, Other (mild murmur left sternal chest border) - Respiratory Respiratory: Clear bilaterally, Other (no chestwall tednernes) - Abdomen Abdomen: Soft, Non tender - Back Back: No spinal TTP (has some tenderness right paralumbar muscles. SI area and gluteal area tender. No bruising noted. The right hip itself has rotation passive and active without pain. She has pain and weakness of right hip flexion. ) - Derm Derm: Normal color, Warm and dry - Extremities Extremities: Other (right upper arm laterally with eliptical shape 3 cm by 1/2 cm with non infected looking 2nd degree burn. ) - Neuro Neuro: Alert and oriented X 3, No sensory deficit, Normal speech, Other (lower right leg with good motor, sensory to touch and sharp normal in both legs. Knee reflexes normal. ) Eye Opening: Spontaneous Motor: Obeys Commands Verbal: Oriented GCS Score: 15 Results - Vitals Vitals: Vital Signs - 24 hr 06/12/20 06/12/20 10:01 12:30 Temperature 36.3 C L Heart Rate 89 79 Respiratory 16 18 Rate Blood Pressure 164/80 H 163/82 H O2 Saturation 99 99 Oxygen O2 Source Room air - Rads (name of study) pelvic CT Radiology: Prelim report reviewed (no fractures), See rad report lumbar CT Radiology: Prelim report reviewed (no acute fractures; has some canal narrowing lower lumbar. ), See rad report PD MEDICAL DECISION MAKING - ED course Complexity details: reviewed results (pelvic CT and lumbar CT without acute process. Presume her weakness to flex at the hip relates to the muscle pain. ), considered differential, d/w patient Departure - Departure Disposition: 01 Home, Self Care Clinical Impression: Pain in joint involving right pelvic region and thigh Strain of hip flexor Qualifiers: Encounter type: initial encounter Laterality: right Qualified Code(s): S76.011A - Strain of muscle, fascia and tendon of right hip, initial encounter Burn of upper arm Qualifiers: Encounter type: initial encounter Laterality: right Burn degree: partial thickness (2nd degree) Qualified Code(s): T22.231A - Burn of second degree of right upper arm, initial encounter Condition: Stable Record reviewed to determine appropriate education?: Yes Follow-Up: Stewart Herron MD [Primary Care Provider] - Prescriptions: Mupirocin Calcium [Mupirocin] 1 applic TP TID #15 cream..g. Comments: CT scan of your lower back and pelvis do not show any fractures. You can still be hurting in the area and have pain and weakness with flexing the hip due to muscle strain. Continue with some therapy of the hip and back. Use Tylenol 500 mg 4 times a day regularly for the next week to help with the pain. Continue with your walker. Recheck if not improving well over the next week or so. Regarding the arm burn, continue with some ointment to it once or twice daily and regular covering for wound care. It appears good at this time. Use an ant ibiotic ointment such as mupirocin. Discharge Date/Time: 06/12/20 12:42
[2020-06-12] MEDS ORDERED: ACETAMINOPHEN 325 MG TABLET PO STA (10:55)
--- NOTE | 2020-06-12 11:50 | CT Report ---
PROCEDURE: LUMBAR SPINE WO INDICATIONS: fall earlier in month; still pelvic pain TECHNIQUE: Noncontrast 3 mm thick sections acquired from the T12 level to the sacrum. Sagittal and coronal refo rmats were constructed. For radiation dose reduction, the following was used: automated exposure co ntrol, adjustment of mA and/or kV according to patient size. COMPARISON: None. FINDINGS: Image quality: Excellent. Bones: There is trace L2-L3 retrolisthesis. There is mild L4-L5 anterolisthesis. Schmorl's node note d in the superior endplate of the T12 vertebral body. No acute vertebral body compression fractures. No suspicious lytic or blastic bony lesions. Severe L2-L3 degenerative disc disease. Mild L1-L2, L3- L4, L4-L5 and L5-S1 degenerative disc disease. Moderate L4-L5 and L5-S1 facet arthropathy. Mild L1-L2 , L2-L3 and L3-L4 facet arthropathy. Moderate to severe L4-L5 central canal narrowing. Severe left L4 -L5 neural foraminal narrowing with slight compression of the exiting left L4 nerve root. No pars def ects. Soft tissues: No retroperitoneal masses or hematomas. Visualized aorta is normal in caliber. Scatte red atherosclerotic calcifications are noted in the visualized abdominal and pelvic vasculature. IMPRESSION: 1. No fracture. No acute osseous lesion. If there is continued clinical concern for pathology, then M RI should be considered for further evaluation. 2. Multilevel degenerative disease. 3. Multilevel facet arthropathy. 4. Moderate to severe L4-L5 central canal narrowing. 5. Severe left L4-L5 neural foraminal narrowing with slight compression of the exiting left L4 nerve root. Reviewed by: Maria M Salazar MD, PhD on 06/12/2020 11:49 AM PST Approved by: Maria M Salazar MD, PhD on 06/12/2020 11:49 AM PST Station ID: [id number]
--- NOTE | 2020-06-12 12:04 | CT Report ---
PROCEDURE: PELVIS WO INDICATIONS: Persistent pelvic pain status post fall earlier in month. TECHNIQUE: Noncontrast 3 mm axial sections acquired through the bony pelvis, with coronal and sagittal reformatt ing. For radiation dose reduction, the following was used: automated exposure control, adjustment of mA and/or kV according to patient size. COMPARISON: None. FINDINGS: Image quality: Excellent. Bones: The visualized osseous structures appear osteopenic. No displaced fractures or dislocation. No definite nondisplaced fractures identified, with evaluation slightly limited by osteopenia. There is mild degenerative disc disease and moderate facet arthropathy within the visualized lower lumbar spi ne. Soft tissues: No discrete hematoma questions identified within the scanned area. No intraperitoneal free fluid. Colonic diverticulosis is demonstrated without acute diverticulitis. IMPRESSION: 1. No fractures identified. Reviewed by: John Garcia MD on 06/12/2020 12:02 PM [facility] Approved by: John Garcia MD on 06/12/2020 12:02 PM PST Station ID: [id number]
[2020-06-12 12:30] VITALS: BP 163/82
== END 2020-06-12 12:42 | disposition home or self-care (01) ==
LOC: ED 09:58
DX: T22.231A Burn of second degree of right upper arm, initial encounter (principal); S76.011A Strain of muscle, fascia and tendon of right hip, initial encounter; X16.XXXA Contact with hot heating appliances, radiators and pipes, initial encounter; Y92.009 Unspecified place in unspecified non-institutional (private) residence as the place of occurrence of the external cause; I10 Essential (primary) hypertension; E11.9 Type 2 diabetes mellitus without complications; Z79.84 Long term (current) use of oral hypoglycemic drugs
CPT/HCPCS: 72131; 72192; 99284; A9270

== ENCOUNTER 2020-08-11 08:00 | Outpatient (CLI) | payer MEDICARE, BC | END 2020-08-11 23:59 | disposition home or self-care (01) | LOC: LAB.WCP 08:00 | PROVIDERS: ATTEND Family Medicine | DX: E11.9 Type 2 diabetes mellitus without complications (principal); I10 Essential (primary) hypertension | CPT/HCPCS: 36415; 80048; 82043; 82570; 83036 ==

== ENCOUNTER 2020-08-19 09:51 | Outpatient (CLI) | payer MEDICARE, BC | END 2020-08-19 09:52 | disposition critical access hospital (66) | LOC: EMS 09:51 | DX: M25.551 Pain in right hip (principal); R44.8 Other symptoms and signs involving general sensations and perceptions | CPT/HCPCS: A0425; A0429 ==

== ENCOUNTER 2020-08-19 10:04 | Emergency (ER) | payer MEDICARE, BC ==
--- NOTE | 2020-08-19 10:42 | ED Physician Documentation ---
PD HPI Fall - Stated complaint Stated Complaint: GLF - Chief complaint Chief Complaint: Trauma Ext - History obtained from History obtained from: Patient, Family - History of Present Illness Mechanism of injury: Slipped Fall distance: Standing position (she states she was using walker to get up to bathroom and had pain right posterior hip, leg gave out and she slumped to floor . Denies fall/impact per se. Unable to get up. Caregiver found her on floor this morning after few hours on floor. Pt with pain right posterior hip. Has had pain there a week.) Where injury occurred: Home Timing - onset: How many days ago Injury(ies) location: Right Lower Extremity (posterior right hip and at SI area. Not having pain in lumbar per se.) Quality of pain: Pain, Aching, Sharp Associated symptoms: No: LOC, AMS, Weakness, Paresthesias Worsens with: Movement, Other (walking) Similar symptoms before: Has not had sx before Recently seen: Clinic (seen PMD and is having PT set up for the back.) Review of Systems Constitutional: denies: Fever, Chills Nose: denies: Rhinorrhea / runny nose, Congestion Throat: denies: Sore throat Cardiac: denies: Chest pain / pressure Respiratory: denies: Cough Skin: denies: Rash, Lesions Musculoskeletal: denies: Neck pain, Back pain Neurologic: denies: Confused, Altered mental status, Headache, Head injury PD PAST MEDICAL HISTORY - Past Medical History Past Medical History: Yes Cardiovascular: Hypertension Respiratory: Sleep apnea Neuro: None Endocrine/Autoimmune: Type 2 diabetes, HyPOthyroidism GI: Colon polyps : None HEENT: Macular degeneration Psych: None Musculoskeletal: None Derm: None - Past Surgical History Past Surgical History: Yes General: Cholecystectomy, Appendectomy, Bowel surgery, 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 HEENT: Cataracts - Present Medications Home Medications: Ambulatory Orders Medication Instructions Recorded Confirmed Glipizide [Glipizide ER] 2.5 mg PO DAILY 11/21/12 08/19/20 Levothyroxine Sodium [Synthroid] 100 mcg PO DAILY 11/21/12 08/19/20 Losartan [Cozaar] 25 mg PO DAILY 11/21/12 08/19/20 Aspirin [Aspir 81] 81 mg ORAL DAILY 04/08/14 08/19/20 Meloxicam [Mobic] 15 mg DAILY 06/12/20 06/12/20 Nortriptyline [Pamelor] 20 mg QPM 06/12/20 08/19/20 Meloxicam [Mobic] 7.5 mg PO DAILY #15 tab 08/19/20 - Allergies Allergies/Adverse Reactions: Allergies Allergy/AdvReac Type Severity Reaction Status Date / Time No Known Drug Allergies Allergy Verified 08/19/20 10:11 - Social History Does the pt smoke?: No Smoking Status: Never smoker Does the pt drink ETOH?: No Does the pt have substance abuse?: No - Immunizations Immunizations are current?: No Immunizations: TDAP >10years/unknown PD ED PE NORMAL - Vitals Vital signs reviewed: Yes - General General: Alert and oriented X 3, Well developed/nourished - HEENT HEENT: PERRL, EOMI, Other (mild swelling and tender right parietal. NO noted deformity. ) - Neck Neck: Supple, no meningeal sign, No bony TTP, No adenopathy - Cardiac Cardiac: RRR, No murmur - Respiratory Respiratory: Clear bilaterally - Abdomen Abdomen: Soft, Non tender - Back Back: No spinal TTP, Other (right SI area and posterior hip with some tenderness but no deformity. Hip socket itself without deformity and has good passive ROM and rotation without pain. ) - Derm Derm: Normal color, Warm and dry, No rash - Extremities Extremities: Normal ROM s pain, No edema - Neuro Neuro: Alert and oriented X 3, No motor deficit, No sensory deficit, Normal speech Results - Vitals Vitals: Vital Signs - 24 hr 08/19/20 08/19/20 08/19/20 10:11 10:53 12:33 Temperature 36.6 C 36.5 C Heart Rate 89 87 87 Respiratory 20 18 18 Rate Blood Pressure 195/98 H 192/90 H 193/96 H O2 Saturation 99 97 97 08/19/20 14:00 Temperature 36.5 C Heart Rate 86 Respiratory 18 Rate Blood Pressure 160/88 H O2 Saturation 98 Oxygen O2 Source Room air - Labs Labs: Laboratory Tests 08/19/20 08/19/20 11:12 11:12 WBC 7.4 RBC 4.92 Hgb 15.5 Hct 45.8 MCV 93.1 MCH 31.5 H MCHC 33.8 RDW 13.1 Plt Count 196 MPV 10.5 Neut # (Auto) 5.0 Lymph # (Auto) 1.6 [place] # (Auto) 0.6 Eos # (Auto) 0.1 Baso # (Auto) 0.1 Absolute Nucleated RBC 0.00 Nucleated RBC % 0.0 Sodium 141 Potassium 4.0 Chloride 102 Carbon Dioxide 28 Anion Gap 11.0 BUN 22 H Creatinine 0.9 Estimated GFR (MDRD) 59 L Glucose 160 H Calcium 9.1 Total Bilirubin 0.6 AST 19 ALT 10 Alkaline Phosphatase 58 Total Protein 7.6 Albumin 4.1 Globulin 3.5 Albumin/Globulin Ratio 1.2 - Rads (name of study) pelvic CT Radiology: Prelim report reviewed (no fractures), See rad report head CT Radiology: Prelim report reviewed (no ICH), See rad report Departure - Departure Disposition: 01 Home, Self Care Clinical Impression: Sacroiliac pain, Fall from standing Condition: Stable Record reviewed to determine appropriate education?: Yes Instructions: Sacroiliac Strain Prescriptions: Meloxicam [Mobic] 7.5 mg PO DAILY #15 tab Comments: Your CT scan of the head does not show any bleeding swelling or fractures. Your CT scan of the pelvis area does not show any fractures. Your pains sounds like inflammation around the sacroiliac joint. Continue anti-inflammatory such as Mobic daily for the next couple of weeks. Take it with food. To that add Tylenol 500 mg 4 times a day regularly to help reduce the general pain. Follow-up with your primary care for further treatment and potential physical therapy for it. Continue therapy for the area. Your basic blood count and electrolytes and blood tests are looking okay. Your vital signs are good today. I believe the pain of the hip/SI area are what is causing your leg to give out at times. Discharge Date/Time: 08/19/20 14:14
[2020-08-19] MEDS ORDERED: MORPHINE 2 MG/ML CARPUJECT IVP STA (11:02)
[2020-08-19] MEDS ORDERED: KETOROLAC 15 MG/ML VIAL IVP STA (11:02)
[2020-08-19] MEDS ORDERED: SODIUM CHLORIDE 0.9% 1,000 ML IV STA (11:02)
[2020-08-19 11:19] LABS: BASOPHILS # (AUTO) 0.1 10^3/uL (0.0-0.1); BASOPHILS % (AUTO) 0.8 %; EOSINOPHILS # (AUTO) 0.1 10^3/uL (0.0-0.7); EOSINOPHILS % (AUTO) 1.1 %; HGB - HEMOGLOBIN 15.5 g/dL (12.0-16.0); LYMPHOCYTES # (AUTO) 1.6 10^3/uL (1.5-3.5); MEAN CORPUSCULAR HEMOGLOBIN 31.5 pg (27.0-31.0); MEAN CORPUSCULAR HGB CONC 33.8 g/dL (32.0-36.0); MEAN CORPUSCULAR VOLUME 93.1 fL (81.0-99.0); MEAN PLATELET VOLUME 10.5 fL (7.9-10.8); MONOCYTES # (AUTO) 0.6 10^3/uL (0.0-1.0); MONOCYTES % (AUTO) 8.3 %; NEUTROPHILS % (AUTO) 67.4 %; PLT - PLATELET COUNT 196 10^3/uL (130-450); RED BLOOD COUNT 4.92 10^6/uL (4.20-5.40); RED CELL DISTRIBUTION WIDTH 13.1 % (12.0-15.0); WHITE BLOOD COUNT 7.4 x10^3/uL (4.8-10.8)
[2020-08-19 11:30] LABS: ALBUMIN 4.1 g/dL (3.2-5.5); ALBUMIN/GLOBULIN RATIO 1.2 (1.0-2.2); BILIRUBIN,TOTAL 0.6 mg/dL (0.2-1.0); CALCIUM 9.1 mg/dL (8.5-10.3); CREATININE 0.9 mg/dL (0.4-1.0); TOTAL PROTEIN 7.6 g/dL (6.7-8.2)
--- NOTE | 2020-08-19 12:08 | CT Report ---
PROCEDURE: HEAD WO INDICATIONS: fall, struck head TECHNIQUE: Noncontrast 4.5 mm thick angled axial sections acquired from the foramen magnum to the vertex. For r adiation dose reduction, the following was used: automated exposure control, adjustment of mA and/or kV according to patient size. COMPARISON: 10/09/2018, 01/28/2016 FINDINGS: Image quality: Excellent. CSF spaces: Basal cisterns are patent. No extra-axial fluid collections. Ventricles are normal in size and shape. Brain: No midline shift. No intracranial masses or hemorrhage. Wilkes-white matter interface is norm al. Brain parenchymal volume loss and chronic small vessel ischemic change can be seen. Skull and face: Calvarium and visualized facial bones are intact, without suspicious lesions. Hyper ostosis frontalis is incidentally noted, which is not frankly abnormal for a female patient of this a ge. Sinuses: Visualized sinuses and mastoids are clear. IMPRESSION: No intracranial hemorrhage is seen. No significant intracranial abnormality is seen. Age-appropriate brain parenchymal volume loss and chronic small vessel ischemic change can be seen. Reviewed by: Rubens Childress MD on 08/19/2020 11:07 AM [facility] Approved by: Rubens Childress MD on 08/19/2020 11:07 AM [facility] Station ID: [id number]
--- NOTE | 2020-08-19 12:56 | CT Report ---
PROCEDURE: PELVIS WO INDICATIONS: fall, right hip/sacral pain TECHNIQUE: Noncontrast 3 mm axial sections acquired through the bony pelvis, with coronal and sagittal reformatt ing. For radiation dose reduction, the following was used: automated exposure control, adjustment of mA and/or kV according to patient size. COMPARISON: CT pelvis 06/12/2020 FINDINGS: Image quality: Excellent. Bones: No acute fracture or dislocation. The pelvic bones are intact. Mild degenerative changes are seen in the hips. Degenerative changes are noted in the sacroiliac joints and the included lower lumb ar spine. Soft tissues: The bladder is moderately distended. Status post hysterectomy. A few diverticula are s een in the included portions of the colon. Mild atherosclerotic calcifications are seen in the includ ed aorta. IMPRESSION: No acute fracture. No acute abnormality is seen. Reviewed by: Joss Natarajan MD on 08/19/2020 12:55 PM PST Approved by: Joss Natarajan MD on 08/19/2020 12:55 PM PST Station ID: [id number]
[2020-08-19 14:08] VITALS: BP 160/88
== END 2020-08-19 14:14 | disposition home or self-care (01) ==
LOC: EDUNIT# → ED 10:04
DX: S39.92XA Unspecified injury of lower back, initial encounter (principal); W18.30XA Fall on same level, unspecified, initial encounter; Y93.01 Activity, walking, marching and hiking; Y92.009 Unspecified place in unspecified non-institutional (private) residence as the place of occurrence of the external cause; I10 Essential (primary) hypertension; E11.36 Type 2 diabetes mellitus with diabetic cataract; H26.9 Unspecified cataract; Z79.84 Long term (current) use of oral hypoglycemic drugs
CPT/HCPCS: 36415; 80053; 85025; 96361; 96374; 99284

== ENCOUNTER 2020-11-22 10:21 | Outpatient (CLI) | payer MEDICARE, BC | END 2020-11-22 10:22 | disposition critical access hospital (66) | LOC: EMS 10:21 | DX: R53.1 Weakness (principal); W19.XXXA Unspecified fall, initial encounter; Y92.009 Unspecified place in unspecified non-institutional (private) residence as the place of occurrence of the external cause | CPT/HCPCS: A0425; A0429 ==

== ENCOUNTER 2020-11-22 10:36 | Emergency (ER) | payer MEDICARE, BC ==
--- NOTE | 2020-11-22 11:03 | ED Physician Documentation ---
PD HPI Fall - Stated complaint Stated Complaint: FOUND DOWN - Chief complaint Chief Complaint: Ext Problem - History obtained from History obtained from: Patient, EMS, Caregiver - History of Present Illness Mechanism of injury: Slipped, Lost balance Fall distance: Standing position (she lives alone with caregivers during the day. She states felt weak getting up last night and slumped to floor. Lay on front on floor all night due to weakness until caregiver arrived today. Denies hard impact. some pain generally. Feeling weak in legs.) Where injury occurred: Home Timing - onset: Last night Injury(ies) location: No: Head, Neck, Chest, Abdomen Associated symptoms: Weakness (generally, more in right leg after lying on it). No: LOC Worsens with: Movement Contributing factors: No: Anticoagulated Similar symptoms before: Has not had sx before Recently seen: Clinic (had COVID 2nd vaccine 2 days ago.) Review of Systems Constitutional: reports: Myalgias, Fatigue. denies: Fever, Chills Nose: denies: Rhinorrhea / runny nose, Congestion Throat: denies: Sore throat Cardiac: denies: Chest pain / pressure, Palpitations, Pedal edema Respiratory: denies: Cough GI: reports: Nausea (for 1-2 days with less PO intake yesterday after COVID vaccine day prior.). denies: Abdominal Pain, Vomiting, Diarrhea : denies: Dysuria Skin: denies: Laceration (s) Neurologic: reports: Generalized weakness. 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 HEENT: Cataracts - Present Medications Home Medications: Ambulatory Orders Medication Instructions Recorded Confirmed Glipizide [Glipizide ER] 2.5 mg PO DAILY 11/21/12 08/19/20 Levothyroxine Sodium [Synthroid] 100 mcg PO DAILY 11/21/12 08/19/20 Losartan [Cozaar] 25 mg PO DAILY 11/21/12 08/19/20 Aspirin [Aspir 81] 81 mg ORAL DAILY 04/08/14 08/19/20 Meloxicam [Mobic] 15 mg DAILY 06/12/20 06/12/20 Nortriptyline [Pamelor] 20 mg QPM 06/12/20 08/19/20 Meloxicam [Mobic] 7.5 mg PO DAILY #15 tab 08/19/20 - Allergies Allergies/Adverse Reactions: Allergies Allergy/AdvReac Type Severity Reaction Status Date / Time No Known Drug Allergies Allergy Verified 11/22/20 10:46 - Social History Does the pt smoke?: No Smoking Status: Never smoker Does the pt drink ETOH?: No Does the pt have substance abuse?: No - Immunizations Immunizations are current?: No Immunizations: TDAP >10years/unknown PD ED PE NORMAL - Vitals Vital signs reviewed: Yes - General General: Alert and oriented X 3, No acute distress, Well developed/nourished - HEENT HEENT: Atraumatic - Neck Neck: Supple, no meningeal sign, No bony TTP, No adenopathy - Cardiac Cardiac: RRR, No murmur - Respiratory Respiratory: Clear bilaterally, Other (no chestwall tenderness) - Abdomen Abdomen: Soft, Non tender - Back Back: No CVA TTP, No spinal TTP - Derm Derm: Normal color, Warm and dry - Extremities Extremities: Normal ROM s pain, No edema, No calf tenderness / cord - Neuro Neuro: Alert and oriented X 3, No motor deficit, Normal speech Eye Opening: Spontaneous Motor: Obeys Commands Verbal: Oriented GCS Score: 15 Results - Vitals Vitals: Vital Signs - 24 hr 11/22/20 11/22/20 11/22/20 10:41 11:21 11:48 Temperature 36.7 C Heart Rate 87 87 88 Respiratory 16 16 19 Rate Blood Pressure 145/87 H 139/74 H 145/77 H O2 Saturation 98 97 99 11/22/20 11/22/20 11/22/20 12:05 12:30 13:00 Temperature Heart Rate 88 85 83 Respiratory 18 18 18 Rate Blood Pressure 162/81 H 181/105 H 184/93 H O2 Saturation 99 99 98 11/22/20 11/22/20 11/22/20 13:30 14:00 14:41 Temperature Heart Rate 82 79 81 Respiratory 18 18 16 Rate Blood Pressure 142/96 H 161/102 H 180/87 H O2 Saturation 98 96 100 Oxygen O2 Source Room air - EKG (time done) 13:02 Rate: Rate (enter#) (82) Rhythm: NSR [place]: Normal Intervals: Normal MD QRS: Normal Ischemia: Normal ST segments. No: ST elevation c/w ischemia, ST depression - Labs Labs: Laboratory Tests 11/22/20 11/22/20 11/22/20 11:59 11:59 11:59 WBC 10.6 RBC 4.88 Hgb 15.5 Hct 45.4 MCV 93.0 MCH 31.8 H MCHC 34.1 RDW 13.2 Plt Count 202 MPV 10.7 Neut # (Auto) 7.8 H Lymph # (Auto) 1.5 [place] # (Auto) 1.2 H Eos # (Auto) 0.0 Baso # (Auto) 0.1 Absolute Nucleated RBC 0.00 Nucleated RBC % 0.0 Sodium 136 Potassium 3.8 Chloride 96 L Carbon Dioxide 27 Anion Gap 13.0 BUN 21 H Creatinine 0.8 Estimated GFR (MDRD) 68 L Glucose 141 H Calcium 9.0 Magnesium 2.3 Total Bilirubin 1.3 H AST 73 H ALT 17 Alkaline Phosphatase 57 Total Creatine Kinase 1503 H* Troponin I High Sens 16.6 H* Total Protein 7.9 Albumin 4.2 Globulin 3.7 Albumin/Globulin Ratio 1.1 Lipase 20 L PD MEDICAL DECISION MAKING - ED course Complexity details: reviewed results, re-evaluated patient (feeling better with IV fluids. ), considered differential (presume weakness and some underhydration secondary to vaccine effects. No focal injury. Given IV fluids and feels improved. CK elevated but not significantly to warrant admission. ), d/w patient Departure - Departure Disposition: 01 Home, Self Care Clinical Impression: General weakness Post-vaccination reaction Qualifiers: Encounter type: initial encounter Qualified Code(s): T88.1XXA - Other complications following immunization, not elsewhere classified, initial encounter Rhabdomyolysis Qualifiers: Rhabdomyolysis type: traumatic Encounter type: initial encounter Qualified Code(s): T79.6XXA - Traumatic ischemia of muscle, initial encounter Fall Qualifiers: Encounter type: initial encounter Qualified Code(s): W19.XXXA - Unspecified fall, initial encounter Condition: Stable Record reviewed to determine appropriate education?: Yes Follow-Up: Stewart Herron MD [Primary Care Provider] - Comments: Stay well-hydrated. Assumedly had some weakness or reaction to the vaccine with under hydration perhaps. He did have some muscle breakdown from being on the floor but not significant enough to need hospitalization. Tylenol if needed for pains. Continue usual medications. I would anticipate feeling improved over the next couple of days. Discharge Date/Time: 11/22/20 15:28
[2020-11-22] MEDS ORDERED: SODIUM CHLORIDE 0.9% 1,000 ML IV STA ×2 (11:30→13:48)
[2020-11-22 12:14] LABS: BASOPHILS # (AUTO) 0.1 10^3/uL (0.0-0.1); BASOPHILS % (AUTO) 0.5 %; EOSINOPHILS % (AUTO) 0.1 %; HCT - HEMATOCRIT 45.4 % (37.0-47.0); HGB - HEMOGLOBIN 15.5 g/dL (12.0-16.0); LYMPHOCYTES # (AUTO) 1.5 10^3/uL (1.5-3.5); LYMPHOCYTES % (AUTO) 14.1 %; MEAN CORPUSCULAR HEMOGLOBIN 31.8 pg (27.0-31.0); MEAN CORPUSCULAR HGB CONC 34.1 g/dL (32.0-36.0); MEAN PLATELET VOLUME 10.7 fL (7.9-10.8); MONOCYTES # (AUTO) 1.2 10^3/uL (0.0-1.0); MONOCYTES % (AUTO) 11.6 %; NEUTROPHILS # (AUTO) 7.8 10^3/uL (1.5-6.6); NEUTROPHILS % (AUTO) 73.4 %; PLT - PLATELET COUNT 202 10^3/uL (130-450); RED BLOOD COUNT 4.88 10^6/uL (4.20-5.40); RED CELL DISTRIBUTION WIDTH 13.2 % (12.0-15.0); WHITE BLOOD COUNT 10.6 x10^3/uL (4.8-10.8)
[2020-11-22 12:44] LABS: ALBUMIN 4.2 g/dL (3.2-5.5); ALBUMIN/GLOBULIN RATIO 1.1 (1.0-2.2); BILIRUBIN,TOTAL 1.3 mg/dL (0.2-1.0); CREATININE 0.8 mg/dL (0.4-1.0); MAGNESIUM 2.3 mg/dL (1.7-2.8); POTASSIUM 3.8 mmol/L (3.5-5.0); TOTAL PROTEIN 7.9 g/dL (6.7-8.2)
[2020-11-22 14:42] VITALS: BP 180/87
== END 2020-11-22 15:28 | disposition home or self-care (01) ==
LOC: EDUNIT# → ED 10:36
DX: T88.1XXA Other complications following immunization, not elsewhere classified, initial encounter (principal); E86.0 Dehydration; T79.6XXA Traumatic ischemia of muscle, initial encounter; W19.XXXA Unspecified fall, initial encounter; Y92.009 Unspecified place in unspecified non-institutional (private) residence as the place of occurrence of the external cause; E11.9 Type 2 diabetes mellitus without complications; Z79.84 Long term (current) use of oral hypoglycemic drugs
CPT/HCPCS: 36415; 80053; 82550; 83690; 83735; 84484; 85025; 93005; 99282; 99283

== ENCOUNTER 2020-11-23 19:52 | Outpatient (CLI) | payer MEDICARE, BC | END 2020-11-23 19:53 | disposition EMS.NT | LOC: EMS 19:52 | DX: Z03.89 Encounter for observation for other suspected diseases and conditions ruled out (principal) ==